=== PATIENT | female | born 1960 | race Two or more races ===

== ENCOUNTER 2024-09-21 17:38 | Emergency (ER) | payer MEDICAID, SELFPAY ==
[2024-09-21 18:17] VITALS: PULSE 85; RESP 18; TEMP 36.6; O2SAT 98; BMI 35.5
--- NOTE | 2024-09-21 18:30 | XR_ITS ---
Examination: Duplex scan of the lower extremity, unilateral right complete Date and time of exam: September 21, 2024 2059 hrs. Indications: Right leg pain swelling and edema beginning 3 days ago Technique: Duplex scan of the extremity veins using B-mode/grayscale imaging and Doppler spectral analysis and color flow Attention is directed to internal echogenicity, compression and augmentation involving these veins, color flow assessment, spectral analysis Findings: Major deep venous structures in the extremity demonstrate normal course and caliber. There is no evidence of deep vein thrombosis. Normal color flow and spectral analysis Impression: Negative for DVT..
--- NOTE | 2024-09-21 21:52 | PD.EDLOWEX ---
Lower Extremity Injury RME/HPI General Chief Complaint: Ankle/Foot Injury Stated Complaint: Right leg pain, radiating from ankle up Time Seen by Provider: 09/21/24 18:14 Arrival date/time: 09/21/24 17:38 RME / HPI RME / HPI Narrative: This section includes all my notes and documentations, including HPI, PE, and ED course. John Littlejohn MD HPI: 64-year-old female here with a couple week history of right leg edema. No pain or redness or warmth. No fever or chills. No chest pain or shortness of breath. No other complaints. ROS: All negative except as documented in HPI. Physical Exam: General: Alert and oriented. Eyes: Conjunctivae and lids clear. ENT: No nasal congestion. Neck: Supple. Lungs: No respiratory distress. Skin: Warm and dry. Neuro: Alert and oriented X 3. Right Leg: Severe varicose veins noted. Edema noted. No erythema or calor or tenderness. My review of the right leg US report is no DVT. At this point, diagnoses include varicose veins. Recommended more outpatient care. Based on my best medical judgment, made decision no further evaluation or treatment indicated at this time. Patient understands and agrees to the discharge instructions customized and printed, see below. Discharge Instructions from Dr. Littlejohn printed for you: 1. Fortunately, there is no blood clots. 2. The swelling is most likely from the varicose veins and leaking. 3. When sitting or resting or sleeping, elevate your feet/ankles above your waist level. This is very important. 4. See your private doctor on 09/25/2024 for recheck and further care. 5. Seek immediate medical care with worsening or with any concerns. John Littlejohn MD Related Data Home Medications ?Medication ?Instructions ?Recorded ?Confirmed No Known Home Medications 03/01/22 03/01/22 Allergies Allergy/AdvReac Type Severity Reaction Status Date / Time No Known Allergies Allergy Verified 03/01/22 17:47 Course Quality Measures none Orders Category Date Time Status US venous doppler LE RT Stat Exams 09/21/24 18:30 Completed Vital Signs Vital signs: Vital Signs Temperature 98 F 09/21/24 18:17 Pulse Rate 85 09/21/24 18:17 Respiratory Rate 18 09/21/24 18:17 Pulse Oximetry (%) 98 09/21/24 18:17 Oxygen Delivery Method Room Air 09/21/24 18:17 Extremity Injury, Lower Patient data External records reviewed:: None Clinical information provided by:: patient Social determinants that could affect healthcare access:: none Patient has the following chronic illnesses:: Varicose veins How is presenting disease/condition affected by chronic disease/condition?: exacerbated by Evaluation data The following diagnostics were reviewed and interpreted by me:: radiology exam(s) Lab and/or radiology exams considered but not ordered:: None Interpretation Summary: No DVT Medications / Prescriptions Medications or Prescriptions considered but not ordered:: None Medication administrations:: No indication for medication here Consultations Consultation(s) initiated? (list below): No Diagnosis Extremity Injury, Lower Differential Diagnosis: other (DVT, varicose veins, CHF, lymphedema, dependent edema) Most likely diagnosis given after review of the tests above:: Varicose veins Admission Indicated Admission indicated?: not indicated Explain why admission is indicated or not indicated:: Admission criteria not met Admission Request Was there a request for admission?: No Disposition Plan Disposition Plan: Discharge Discharge Attestation Discharge Attestation: The patient and all family members were given an opportunity to ask questions and understood the discharge instructions. Discharge instructions specifically effects, indications for sooner follow up or return to the emergency department, and the expected course of current diagnosis. Patient condition: Stable Discharge Plan Plan Patient Disposition: HOME (Self Care) Prescriptions/Referrals Prescriptions/Med Rec: No Action No Known Home Medications Referrals: Tho Hernandez MD [Primary Care Provider] - In 1 week Problem List Clinical Impression: Leg edema, right Patient/Caregiver Discharge Instructions Discharge Activity: activity as tolerated Education Materials: ED Leg Swelling in a Single Leg Additional Instructions: Discharge Instructions from Dr. Littlejohn printed for you: 1. Fortunately, there is no blood clots. 2. The swelling is most likely from the varicose veins and leaking. 3. When sitting or resting or sleeping, elevate your feet/ankles above your waist level. This is very important. 4. See your private doctor on 09/25/2024 for recheck and further care. 5. Seek immediate medical care with worsening or with any concerns. Print Language: [place] Irish Stand Alone Forms: Mikaal Award Info., Patient Portal Info Letter
== END 2024-09-21 22:04 | disposition home or self-care (01) ==
PROVIDERS: Emergency Provider Emergency Medicine; PCP Internal Medicine
DX: I83.891 Varicose veins of right lower extremity with other complications (principal)
CPT/HCPCS: 93971; 99284

== ENCOUNTER 2025-01-11 05:45 | Day surgery (SDC) | payer MEDICAID, SELFPAY ==
--- NOTE | 2025-01-08 07:00 | EKG_ITS ---
[facility] Test Date: 2025-01-08 Pat Name: RUTH REED Department: Room: - Gender: Female System Support Specialist: MIRIAM : 1960 Requested By: Harsh Lau Order Number: [id number] Reading MD: Harsh Lau Measurements Intervals [place] Rate: 73 P: 45 MO: 157 QRS: -26 QRSD: 77 T: 32 QT: 397 QTc: 438 Interpretive Statements SINUS RHYTHM LOW QRS VOLTAGE IN PRECORDIAL LEADS [QRS DEFLECTION < 1.0 mV IN CHEST LEADS] POSSIBLE ANTERIOR MYOCARDIAL INFARCTION , PROBABLY OLD [30 ms Q WAVE IN V3/V4, OR R < 0.2 mV IN V4] Compared to ECG 07/02/2019 20:55:32 Low QRS voltage now present Myocardial infarct finding now present Left-axis deviation no longer present T-wave abnormality no longer present /store/S0/[id number].pdf
[2025-01-08 10:11] VITALS: BMI 35.2
[2025-01-08 12:07] LABS: Alanine Aminotransferase 43 U/L (10-49); Albumin, Serum 4.4 gm/dL (3.4-4.8); Albumin/Globulin Ratio 1.6 (1.2-2.2); Alkaline Phosphatase 87 U/L (46-116); Anion Gap 9 (7-16); Aspartate Amino Transferase 35 U/L (0-34); BUN/Creatinine Ratio 18 Ratio (12-20); Bilirubin,Total 0.6 mg/dL (0.3-1.2); Blood Urea Nitrogen 14 mg/dL (9-23); Calcium 9.3 mg/dL (8.3-10.6); Calcium (Corrected) 9.3 mg/dL (8.5-10.1); Carbon Dioxide 26.6 mMol/L (20.0-31.0); Chloride 106 mMol/L (98-107); Creatinine (Component) 0.8 mg/dL (0.6-1.3); Estimated Creatinine Clearance 76.7 mL/min (>60); Globulin 2.7 gm/dL (2.3-3.5); Glucose 164 mg/dL (74-106); Osmolality,Calculated 287 (275-295); Partial Thromboplastin Time 27.6 Seconds (22.0-36.0); Prothrombin Time 10.9 Seconds (9.0-12.2); Sodium 142 mMol/L (136-145); Total Protein 7.1 gm/dL (5.7-8.2); eGFR > 60 See Note
[2025-01-08 12:08] LABS: Basophils # (Auto) 0.1 Thou/mm3 (0.0-0.2); Basophils % (Auto) 1 % (0-2.5); Eosinophils # (Auto) 0.3 Thou/mm3 (0.0-0.5); Eosinophils % (Auto) 4 % (0-10); Hematocrit 39.9 % (36.0-46.0); Hemoglobin 13.4 g/dL (12.0-16.0); Immature Granulocytes % (Auto) 0 % (0-0); Immature Granulocytes Auto 0.02 Thou/mm3 (0.00-0.00); Lymphocytes # (Auto) 1.8 Thou/mm3 (1.0-4.8); Lymphocytes % (Auto) 24 % (10-50); Mean Corpuscular HGB Conc 33.6 g/dl (31.0-37.0); Mean Corpuscular Hemoglobin 30.3 pg (25.0-35.0); Mean Corpuscular Volume 90 fL (80-100); Monocytes # (Auto) 0.7 Thou/mm3 (0.0-0.8); Monocytes % (Auto) 10 % (0-12); Neutrophils # (Auto) 4.6 Thou/mm3 (1.8-7.7); Neutrophils % (Auto) 61 % (37-80); Nucleated Red Blood Cell % 0 /100 WBC (0); Platelet Count 269 Thou/mm3 (140-440); RDW Standard Deviation 43.2 fL (36.4-46.3); Red Blood Count 4.42 Miln/mm3 (4.00-5.20); White Blood Count 7.5 Thou/mm3 (3.6-11.0)
[2025-01-11] VITALS (8 sets, daily range): BP systolic 106–149; BP diastolic 61–83; PULSE 54–90; RESP 14–18; TEMP 36.2–36.5; O2SAT 95–100; BMI 35.2
--- NOTE | 2025-01-11 08:57 | PD.SUROPNT ---
Date of Procedure 01/11/25 Pre Op Diagnosis Symptomatic varicose veins right lower extremity Post Op Diagnosis Same as preop diagnosis Procedure Varicose vein excisions right lower extremity through 70 separate incisions Findings All marked veins were either disrupted or successfully removed Procedure Description With the patient standing in the preop area of the right lower extremity varicose veins were carefully marked with a sharpie pen. The patient was then brought to the operating room and general anesthesia was induced. The the vein excision procedure was performed by making a small skin juventino in the marked areas with a #11 blade then bluntly enlarging the incision and grasping the veins and serially excising them with either mosquito clamps or vein hooks. After all veins had been either removed or disrupted hemostasis was obtained, the leg was washed and then Steri-Strips were applied to all of the incisions the leg was then wrapped with gauze Kerlix and an Aman wrap. The patient woke up from anesthesia was moved to recovery in stable condition. 70 separate incisions were required to remove the veins. Anesthesia other (Laryngeal mask anesthesia) Pathology / specimen Other (Varicose veins right lower extremity) Estimated Blood Loss 100 Disposition PACU Surgeon Benoit Garg MD Surgical Staff Operation Date: 01/11/25 07:30 Case Staff Anesthesiologist: Lukasz Abarca RN First Assistant: Yasmine Pitt
--- NOTE | 2025-01-11 09:35 | SUR.PHASEI ---
0935: Pt. wakes to name then drifts back to sleep, vitals stable, breathing unlabored, no signs of distress, dressing to right leg CDI, no active bleed noted, bilateral dorsalis pedis pulses strong and regular, cap refill to bilateral feet less than 3 seconds, report received from Chapo DAVISON, MD Abarca, and Court WITT.
[2025-01-11] MEDS: fentaNYL CIT INJ 50 mCg/ML AMP 2ML 25 MCG IV ×2 (10:05→10:13)
[2025-01-11] MEDS: ONDANSETRON INJ 2 MG/ML INJ 2 ML 4 MG IV (10:20)
--- NOTE | 2025-01-11 10:40 | SUR.PHASEII ---
1040: Pt. AAOx4, vitals stable, breathing unlabored, no complaint of pain or nausea, dressing to right leg CDI, no active bleed noted, bilateral dorsalis pedis pulses strong and regular, cap refill to bilateral feet less than 3 seconds, pt. able to wiggle bilateral feet, pt. tolerated sips of juice well, pt. ambulated to wheelchair with steady gait and no assist, no complications. Gave discharge instructions to the pt. and her ride, both verbalized understanding and had no further questions. Pt. left with all personal belongings.
== END 2025-01-11 10:40 | disposition home or self-care (01) ==
PROVIDERS: Anesthesiology; PCP Internal Medicine; Referring Provider Surgery Vascular Surgery; Visit Provider Surgery Vascular Surgery
PROC: (CPT 37785; principal; 2025-01-11 07:30)
DX: I83.811 Varicose veins of right lower extremity with pain (principal); Z01.810 Encounter for preprocedural cardiovascular examination
CPT/HCPCS: 37766; 36415; 80053; 85025; 85610; 85730; 93005; A4217; A4649; J0131; J0690; J1100; J1885; J2250; J2371; J2405; J2704; J3010; J3490